=== PATIENT | female | born 2005 | race Hispanic/Latino ===

== ENCOUNTER 2024-05-08 12:56 | Emergency (ER) | payer SELFPAY ==
[2024-05-08] MEDS ORDERED: Diazepam 5 MG TAB ONE (14:32)
[2024-05-08] MEDS ORDERED: Lidocaine 1% PF 5 ML VIAL ONE (15:32)
== END 2024-05-08 16:37 | disposition home or self-care (01) ==
LOC: ERS 12:56
DX: L05.01 Pilonidal cyst with abscess (principal)
CPT/HCPCS: 10080